=== PATIENT | female | born 1950 | race Caucasian/White ===

== ENCOUNTER → 2021-09-17 07:49 | Outpatient (CLI) | payer MEDICARE, SELFPAY ==
--- NOTE | 2021-09-17 07:52 | CDU_ITS ---
Reason For Study: retinal hemorrhage Rt. Velocities/BP Lt. Velocities/BP Prox CCA 66.9/8.2 cm/sec. Prox CCA 69.5/15.7 cm/sec. Mid CCA 70.8/12.1 cm/sec. Mid CCA 78.3/17.9 cm/sec. Dist CCA 52.6/12.1 cm/sec. Dist CCA 70.6/17.9 cm/sec. Prox ICA 52.6/9.5 cm/sec. Prox ICA 55.3/12.4 cm/sec. Mid ICA 60.4/14.7 cm/sec. Mid ICA 50.9/12.4 cm/sec. Dist ICA 77.3/18.6 cm/sec. Dist ICA 89.3/22.3 cm/sec. Rt. ICA/CCA = 1.1. Lt. ICA/CCA = 1.1. Prox ECA 74.7/8.2 cm/sec. Prox ECA 67.3/10.2 cm/sec. Rt. Vert. 41.9/5.0 cm/sec. Lt. Vert. 48.3/11.4 cm/sec. Right Extracranial There is homogeneous, smooth atherosclerotic plaque noted in the right common carotid artery. There is homogeneous, smooth atherosclerotic plaque noted in the right internal carotid artery. There is intimal thickening but no significant atherosclerotic plaque noted in the right external carotid artery. Antegrade flow is noted in the right vertebral artery. Left Extracranial There is homogeneous, smooth atherosclerotic plaque noted in the left common carotid artery. There is homogeneous, smooth atherosclerotic plaque noted in the left internal carotid artery. There is homogeneous, smooth atherosclerotic plaque noted in the left external carotid artery. Antegrade flow is noted in the left vertebral artery. Procedure Carotid Duplex [id number]. This is a Carotid Duplex examination using B-mode, color flow and specral Doppler. The exam was diagnostic. Exam performed in department. VL/Carotid Duplex Ultrasound Interpretation Summary Smooth plaque in the proximal right internal carotid artery with less than 50% stenosis Less than 50% stenosis right external carotid artery Smooth plaque at the proximal left internal carotid artery with less than 50% s tenosis Less than 50% stenosis left external carotid artery Patent antegrade vertebral arteries bilaterally Ordering Physician: Gabino Pantoja Performed By: Shashank Kemp RVT
== END ==
PROVIDERS: PCP Family Medicine; Referring Provider Ophthalmology; Visit Provider Ophthalmology
DX: H35.63 Retinal hemorrhage, bilateral (principal); I65.23 Occlusion and stenosis of bilateral carotid arteries
CPT/HCPCS: 93880

== ENCOUNTER 2025-07-23 15:00 | Outpatient (RCR) | payer MEDICARE, SELFPAY ==
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
--- NOTE | 2025-09-09 12:08 | HP.PT.NRP ---
Patient Information Patient Information: JOHNNY ECHOLS was seen in my office for initial evaluation on 06/19/25. The following Plan of Care was established for this patient: POC Established Initial Frequency: 2x /Week Initial Duration: 3 Months Anticipated Interventions Patient/Client Instruction: Educate patient on: Condition and Plan of Care For the Purpose of:: To decrease pain, To improve muscle performance and motor function, To improve performance and independence with ADL's, To improve health and function, To improve self management and To improve tolerance to ADL's Therapeutic Exercise to Include: Strength training, Dynamic Lumbar Stabilization and Jimi Exercises For the Purpose of:: To decrease pain, To improve muscle performance and motor function, To improve gait and locomotor functions, To improve health and function and To improve self management Manual Therapy Techniques to Include: Trigger point massage, Mobilization and Soft tissue mobilization For the Purpose of:: To decrease pain, To improve muscle performance and motor function, To improve gait and locomotor functions, To improve health and function, To improve self management and To improve tolerance to ADL's Ultrasound (thermal/non thermal): Yes For the Purpose of:: To decrease pain, To improve muscle performance and motor function and To improve health and function Last Seen Last Seen: This patient was last seen in our office 07/23/25. Pertinent comments regarding their Physical therapy will appear below: Spoke with patient by phone in a follow up call. She states her hip X-ray was ok and she is still dealing with mild pain although manageable. She states she only has to take pain meds once a week on average now. She is not back to walking for exercise yet but plans to do so. Recommending she follow up with her doctor if pain persists as she tries to increase activity. At this time, we are discharging her from PT. At this point I will be discontinuing this patient from physical therapy. I would be happy to see this patient again in the future if found appropriate by the physician. Thank you! Gracy Kothari
== END 2025-07-23 19:00 | disposition home or self-care (01) ==
LOC: PT 15:00
PROVIDERS: PCP Family Medicine; Referring Provider Physician Assistant; Visit Provider Physician Assistant
DX: S52.502D Unspecified fracture of the lower end of left radius, subsequent encounter for closed fracture with routine healing (principal); S52.602D Unspecified fracture of lower end of left ulna, subsequent encounter for closed fracture with routine healing
CPT/HCPCS: 97110; 97112; 97140; 97162; 97166; 97530